=== PATIENT | female | born 1950 | race Two or more races ===

== ENCOUNTER 2018-12-10 05:32 | Day surgery (SDC) | payer OTHER | END 2018-12-10 15:40 | disposition home or self-care (01) | LOC: AMB-ENDOS 05:32 | DX: D12.0 Benign neoplasm of cecum (principal) ==

== ENCOUNTER 2021-09-09 12:15 | Inpatient (IN) | payer OTHER ==
[~2021-09-09] VITALS: Ht 157.5 cm; Wt 90.7 kg
[2021-09-15] MEDS ORDERED: AVAPRO150 MG PO (09:13)
[2021-09-15] MEDS ORDERED: GLUMETZA500 MG PO (09:13)
[2021-09-15] MEDS ORDERED: LIPITOR40 M1 (09:13)
[2021-09-15] MEDS ORDERED: CLONAZEPAM0.5 M1 PO (09:14)
[2021-09-15] MEDS ORDERED: FUROSEMIDE20 MG PO (09:14)
[2021-09-17] MEDS ORDERED: PERCOCET 5-3251 EACH PO (11:22)
[2021-09-17] MEDS ORDERED: COLACE100 MG PO (11:22)
== END 2021-09-17 14:14 | disposition home or self-care (01) | DRG 330 ==
LOC: SURG 09-14 09:37 → O/R 09-14 09:37 → SURH 09-14 12:15 → SURG 09-14 17:19 → SURH 09-17 12:25
PROVIDERS: ADMIT Surgery; ATTEND Surgery
PROC: 07TB4ZZ Resection of Mesenteric Lymphatic, Percutaneous Endoscopic Approach (ICD-10-PCS; 2021-09-14)
PROC: 0DTF4ZZ Resection of Right Large Intestine, Percutaneous Endoscopic Approach (ICD-10-PCS; principal; 2021-09-14 16:45)
DX: D12.0 Benign neoplasm of cecum (principal); K92.1 Melena; R59.0 Localized enlarged lymph nodes; K57.30 Diverticulosis of large intestine without perforation or abscess without bleeding